=== PATIENT | female | born 2000 | race Hispanic/Latino ===

== ENCOUNTER 2021-03-28 13:37 | Emergency (ER) | payer OTHER ==
[~2021-03-28] VITALS: Ht 167.6 cm; Wt 52.2 kg
[2021-03-28] MEDS ORDERED: KETOROLAC TROMETHAMINE 60 MG/2 ML VIAL IM ONE (15:30)
[2021-03-28 17:06] VITALS: BP 108/61
== END 2021-03-28 17:08 | disposition home or self-care (01) ==
LOC: ER 14:18
DX: M25.551 Pain in right hip (principal); S70.01XA Contusion of right hip, initial encounter; M54.31 Sciatica, right side; W01.0XXA Fall on same level from slipping, tripping and stumbling without subsequent striking against object, initial encounter; Y93.01 Activity, walking, marching and hiking
CPT/HCPCS: 72110; 73502; 81025; 99283; J1885